=== PATIENT | male | born 1960 | race Caucasian/White ===

== ENCOUNTER 2016-07-12 17:34 | Emergency (ER) | payer OTHER ==
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
[~2016-07-12 17:34] MED LIST: ALLEGRA ALLERG180 MG; ASPIRIN81 MG; CLINORIL PO; FISH OIL500 M1; GLUCOPHAGE850 MG; ISOSORBIDE MONO60 M1; LISINOPRIL5 MG; MICONAZOLE 11 EACH; NEURONTIN600 MG; PANTOPRAZOLE SO40 MG; REQUIP0.25 MG; SERTRALINE HCL100 M1; SIMVASTATIN80 MG; SPIRONOLAC1 TAB 25/2; TOPROL XL 50 MG50 MG; TRAMADOL HCL50 M1; VITAMIN D3400 UNIT
== END 2016-07-12 19:34 | disposition home or self-care (01) ==
LOC: SED 17:34
DX: S16.1XXA Strain of muscle, fascia and tendon at neck level, initial encounter (principal); S29.012A Strain of muscle and tendon of back wall of thorax, initial encounter; S39.012A Strain of muscle, fascia and tendon of lower back, initial encounter; I25.2 Old myocardial infarction; I10 Essential (primary) hypertension; K21.9 Gastro-esophageal reflux disease without esophagitis; V49.10XA Passenger injured in collision with unspecified motor vehicles in nontraffic accident, initial encounter
CPT/HCPCS: 72040; 72072; 72100; 96372; 99284; J2930